=== PATIENT | female | born 1970 | race American Indian/Alaskan Native ===

== ENCOUNTER 2016-11-04 09:17 | Day surgery (SDC) | payer BC ==
[2016-11-02 13:35] LABS: Hematocrit 35.4 % (30.3-42.9); Hemoglobin 11.7 gm/dl (10.1-14.3); Mean Corpuscular HGB Conc 33 % (30-34); Mean Corpuscular Hemoglobin 28 pg (28-32); Mean Corpuscular Volume 85 fl (79-97); Platelet Count 314 K/mm3 (140-440); Red Blood Count 4.16 M/mm3 (3.65-5.03); Red Cell Distribution Width 13.2 % (13.2-15.2); White Blood Count 6.2 K/mm3 (4.5-11.0)
--- NOTE | 2016-11-02 13:40 | Anesthesia Consultation ---
Anesthesia Consult and Med Hx Date of service: 11/02/16 - Airway Anesthetic Teeth Evaluation: Good ROM Head & Neck: Adequate Mental/Hyoid Distance: Adequate Mallampati Class: Class I Intubation Access Assessment: Good - Pulmonary Exam CTA: Yes - Cardiac Exam Cardiac Exam: RRR - Pre-Operative Health Status ASA Pre-Surgery Classification: ASA3 Proposed Anesthetic Plan: General - Pulmonary Hx Smoking: No - Cardiovascular System Hx Hypertension: No Hx Heart Attack/AMI: No - Central Nervous System Hx Seizures: No CVA: No Hx Psychiatric Problems: No - Gastrointestinal Hx Gastroesophageal Reflux Disease: Yes (tomato sauce) - Endocrine Hx Renal Disease: No Hx Liver Disease: No Hx Non-Insulin Dependent Diabetes: No - Hematic Hx Anemia: Yes - Other Systems Hx Alcohol Use: Yes (occas) Hx Cancer: No Hx Obesity: Yes (MO) - Additional Comments Anesthesia Medical History Comments: NAC
[~2016-11-04 09:17] MED LIST: LACTATED RINGERS 1,000 ML IV SCH; PEPCID PO NR; VERSED IV NR
[2016-11-04] MEDS ORDERED: ANCEF/STERILE WATER 2 GM/20 ML 2 GM/20 ML SYRINGE IV NR (10:00)
[2016-11-04] MEDS ORDERED: NACL 0.9% IR ONE ×2 (10:07→10:08)
[2016-11-04] MEDS ORDERED: NACL BACTERIOSTATIC INFILTRATI ONE (10:07)
--- NOTE | 2016-11-04 10:22 | Short Stay Summary ---
Short Stay Documentation Date of service: 11/04/16 Narrative H&P: Pt is a 46yo BF LMP 10/21/16 presents for surgical evaluation and treatment for prolonged heavy vaginal bleeding unresponsive to hormonal therapy. She also had a previous D&C without much improvement. She is now scheduled for a Hysteroscopy with Novasure endometrial ablation. - History Principal diagnosis: DUB H&P: obtained from office Past Medical History: No medical history Past Surgical History: (x3), Other (myomectomy; BTL) Social history: no significant social history, single - Allergies and Medications Current Medications: Allergies pecan nut Allergy (Verified 10/29/16 15:29) Anaphylaxis walnut Allergy (Verified 10/29/16 15:29) Anaphylaxis Home Medications Medication Instructions Recorded Confirmed Last Taken Type No Known Home Medications [No 10/29/16 10/29/16 Unknown History Reported Home Medications] Active Medications Famotidine (Pepcid) 20 mg PO PREOP NR Stop: 11/04/16 23:59 Last Admin: 11/04/16 10:17 Dose: 20 mg Lactated Ringer's (Lactated Ringers) 1,000 mls @ 100 mls/hr IV DIRECT BETITO Cefazolin Sodium (Ancef/Sterile Water 2 Gm/20 Ml) 2 gm in 20 mls @ 80 mls/hr IV PREOP NR PRN Reason: Protocol Stop: 11/04/16 23:59 Midazolam HCl (Versed) 2 mg IV PREOP NR Stop: 11/04/16 23:59 - Physical exam General appearance: no acute distress Integumentary: no rash HEENT: Atraumatic Lungs: Clear to auscultation Breasts: deferred Heart: Regular rate Gastrointestinal: normal Female Genitourinary: deferred Rectal Exam: deferred Extremities: No edema Neurological: Normal speech - Brief post op/procedure progress note Date of procedure: 11/04/16 Pre-op diagnosis: Dysfunctional uterine bleeding Post-op diagnosis: same Procedure: 1. Hysteroscopy 2. Novasure endometrial ablation Anesthesia: MAC Findings: An 8-10 weeks size uterus with dysynchonous endometrium observed pre-ablation, and excellent burn post-ablation. Uterine cavity length 4.5cm, cavity width 4.4cm and 109Watts of Power was used for 120 seconds for the ablation. Surgeon: SAPPHIRE ALEJANDRE Estimated blood loss: minimal Pathology: none Condition: stable - Hospital course Hospital course: Unremarkable. - Disposition Condition at discharge: Good Disposition: DISCHARGED TO HOME OR SELFCARE - Discharge Diagnoses (1) DUB (dysfunctional uterine bleeding) Status: Resolved Short Stay Discharge Plan Activity: no restrictions Diet: regular Follow up with: SAPPHIRE ALEJANDRE MD [Primary Care Provider] - 14 Days Prescriptions: HYDROcodone/APAP 5-325 [Davy 5/325] 1 each PO Q6HR PRN #20 tablet PRN Reason: Pain
[2016-11-04] MEDS ORDERED: DIPRIVAN 10 MG/ML IV ONE (10:33)
[2016-11-04] MEDS ORDERED: DILAUDID ONE (10:34)
[2016-11-04] MEDS ORDERED: XYLOCAINE MPF 2% ONE (10:36)
[2016-11-04] MEDS ORDERED: TORADOL ONE (11:11)
[2016-11-04] MEDS ORDERED: ZOFRAN ONE (11:11)
--- NOTE | 2016-11-04 12:02 | Anesthesia Day of Surgery ---
Anesthesia Day of Surgery - Day of Surgery Patient Examined: Yes Patient H&P Reviewed: Yes Patient is NPO: Yes
--- NOTE | 2016-11-04 12:10 | Operative Report ---
Operative Report Operative Report: Date of procedure: 11/04/2016 Pre-operative diagnosis: Dysfunctional uterine bleeding Post-operative diagnosis: Same Procedure name(s): 1. Hysteroscopy 2. NovaSure endometrial ablation Surgeon: Robert Merritt MD Boom Man: None Anesthesia: General Mac EBL: Minimal <5mls Findings: An 8-10 week size uterus with dyssynchronous endometrium observed pre- ablation, and excellent burn post-ablation. Uterine cavity length 4.5 cm, uterine cavity width 4.4 cm, and 109 W of power was used for 120 seconds to perform the ablation. Procedure: After the patient was correctly identified, she was prepped and draped in usual sterile fashion and placed in dorsolithotomy position. First the bladder emptied using a straight catheter. Next a speculum was placed in the vaginal vault and the anterior lip of the cervix was grasped using single- tooth tenaculum the uterus was sounded to 9 cm, and the uterine cavity was measured to be 4.5 cm. The hysteroscope was then introduced into the cervical canal and visualization of the endometrial cavity found to dyssynchronous endometrium without any endometrial masses. The hysteroscope was then removed, and the NovaSure instrument was introduced into the uterine cavity. The uterine cavity with was 4.4 cm, and after testing, the ablation was performed. 109 W of power was used for 120 seconds to perform the ablation. After the procedure was complete the NovaSure device was removed, and hysteroscopy was then again performed to show the excellent burn. All instruments were then removed from the vagina. The patient tolerated this procedure well and was transported to recovery room in stable condition.
[2016-11-04 14:38] VITALS: BP 133/95
--- NOTE | 2016-11-04 14:57 | Post Anesthesia Evaluation ---
- Post Anesthesia Evaluation Patient Participated: Yes Airway Patent: Yes Stable Respiratory Function: Yes Nausea/Vomiting: No Temp > 96.8F: Yes Pain Manageable: Yes Adequeate Hydration: Yes Anesthesia Complications: No
--- NOTE | 2016-11-05 00:42 | Admit Criteria Form ---
Admission Criteria Documentation: AMBULATORY SURGERY EXCEPTION CRITERIA Ambulatory Surgery Exception Criteria ( Place 'X' for any and all applicable criteria): Surgery or procedure performed on ambulatory basis may require inpatient stay for[A] ANY ONE of the following(1)(2)(3)(4)(5)(6)(7)(8)(9): [X] I. A preoperative situation, condition, or finding that warrants inpatient stay as indicated by ANY ONE of the following: [] a) Inpatient care needed because of severity of a disease or condition rather than the surgery (eg, severe cardiac or respiratory disease, severe infection) (15) (16 ) (17) (18) [] b) Emergent procedure (eg, angioplasty for acute ischemia)(19) [] c) Complex surgical approach or situation as indicated by ANY ONE of the following(3): [] i) Open approach needed instead of usual endoscopic, transcatheter, or other less invasive procedure [] ii) Difficult approach because of previous operation [] iii) Airway monitoring required after open neck procedures(20)(21) [] iv) Large mass requiring unusually extensive dissection [] v) Additional complicating feature requiring inpatient care (eg, drain management)(22(23): [X] d) Major surgery in a pt with high anesthetic risk as indicated by ANY ONE of the following (2)(3)(5)(7)(8): [X] i) ASA risk class III or higher (severe systemic disease impairing function) [D] [] ii) Advanced age (eg, older than 85 years)(14)(24) [] iii) Symptomatic heart failure(25) [] iv) Symptomatic asthma or COPD(8)(21) [] v) Morbid obesity with hemodynamic or respiratory problems(20)( 21)(26)(27) [] vi) Obstructive sleep apnea(20)(21) [] vii) Former premature infants who are younger than 60 weeks [] viii) High risk for severe postoperative abnormalities (eg, severe postoperative hypocalcemia after parathyroidectomy for severe hyperparathyroidism)(27)( 28) [] ix) Unstable angina(25) [] e) Drug-related risk requiring inpatient stay as indicated by ANY ONE of the following(5)(10)(14)(32)(33) [] i) Procedure requires discontinuing drugs or other therapy (eg , antiarrhythmic medication, antiseizure medication), which necessitates inpatient observation or treatment.(18)(31) [] ii) Major surgery and high risk drug use as indicated by ANY ONE of the following: [] 1) Active abuse of cocaine or similar drug [] 2) Monoamine oxidase inhibitor use [] 3) Other drug identified as posing risk [] f) Inadequate outpatient care situation as indicated by ANY ONE of the following(5)(10)(14)(32)(33) [] i) Patient lives remote from medical facility and procedure has urgent complication potential, and temporary nearby residence cannot be arranged [] ii) Patient will have postprocedure incapacitation and inadequate assistance at home, or alternative level of care cannot be arranged. [] iii) Patient will have long general anesthesia or procedure side effect resolution time, and competent person to stay with patient on first postoperative night at home or alternative level of care cannot be arranged. []iv) Other inadequate outpatient situation that cannot be handled by other means [] II. A perioperative event, condition, or finding that warrants inpatient stay as indicated by ANY ONE of the following (1)(2)(3): [] a) Inadequate physiologic recovery: cardiovascular, respiratory, or hemodynamic status not normal or near preoperative baseline(18) [] b) Hemodynamic instability [] c) Patient not alert with near normal or baseline mental status [] d) Temperature not normal or as expected and not appropriate for outpatient treatment of condition [] e) Ambulatory or appropriate activity level status not yet achieved post procedure [E](34)(35)(36) [] f) Operative site not appropriate (eg, unexpected or excessive drainage or bleeding) [] g) Postoperative effects not resolved or adequately managed (eg, significant pain or vomiting not appropriate for outpatient or next level of care)(10)(12) [] h) Complicating features requiring inpatient care as indicated by ANY ONE of the following(37): [] i) Severe complications of procedure (eg, bowel injury, airway compromise, vascular injury,severe hemorrhage) [] ii) Extensive (eg, dissection far beyond usual scope of procedure ) or prolonged (eg, 120 minutes beyond usual) surgery needed requiring inpatient postoperative care [] iii) Conversion to an open or complex procedure that requires inpatient care (eg, open vs laparoscopic cholecystectomy, abdominal vs vaginal hysterectomy)(38) [] iv) Comorbid condition or test result identified during or post procedure that requires inpatient care (7) [] v) Malignant hyperthermia(30) [] vi) Other complicating feature requiring inpatient care(22)(23) Inpatient stay may be needed until ALL of the following are present (1)(2)(3)(4) (5)(6)(10)(14)(33)(40): []a) Physiologic recovery: cardiovascular, respiratory, and hemodynamic status normal or near preoperative baseline []b) Hemodynamic stability []c) Patient alert, with near normal or baseline mental status []d) Temperature appropriate: patient afebrile or temperature appropriate for outpt treatment of condition []e) Activity level appropriate: ambulatory or appropriate activity level post procedure []f) Operative site appropriate as indicated by ALL of the following: []i) Site dry or with expected drainage []ii) Any blood noted is as expected for procedure. []g) Postoperative effects resolved or managed as indicated by ALL of the following: []i) Pain management appropriate for outpatient (or next level of) care(10) []ii) Minimal nausea and vomiting: if present, successfully treated with oral medication(12) []iii) Headache, dizziness, or drowsiness (if present) are mild. []h) Voiding status acceptable as indicated by ANY ONE of the following: []i) Voiding spontaneously []ii) No voiding but instructions given for follow-up in 6 to 8 hours []iii) Urinary catheter in place, and instructions given for follow-up []i) Complicating features requiring inpatient care manageable at a lower level of care(37) []j) Comorbid conditions manageable at a lower level of care(37) The original [employer] content created by [employer] has been revised. The portions of the content which have been revised are identified through the use of italic text or in bold, and [facility] [employer] has neither reviewed nor approved the modified material. All other unmodified content is copyright [employer]. Please see references footnoted in the original [employer] edition 2016 Admission Criteria Met: Yes
== END 2016-11-04 13:25 | disposition home or self-care (01) ==
LOC: OR 09:17
PROVIDERS: ATTEND Obstetrics & Gynecology
DX: N93.8 Other specified abnormal uterine and vaginal bleeding (principal); K21.9 Gastro-esophageal reflux disease without esophagitis; D64.9 Anemia, unspecified; G43.909 Migraine, unspecified, not intractable, without status migrainosus; E66.01 Morbid (severe) obesity due to excess calories; Z68.41 Body mass index [BMI] 40.0-44.9, adult; Z72.89 Other problems related to lifestyle; Z98.890 Other specified postprocedural states; Z98.51 Tubal ligation status; Z86.718 Personal history of other venous thrombosis and embolism
CPT/HCPCS: 36415; 58563; 84703; 85027; A4217; J0690; J1170; J1885; J2250; J2405; J2704; J7120

== ENCOUNTER 2019-08-22 10:18 | Observation (INO) | payer BC ==
[2019-08-21 12:39] LABS: Basophils # (Auto) 0.1 K/mm3 (0.0-0.1); Basophils % (Auto) 1.5 % (0.0-1.8); Eosinophils # (Auto) 0.2 K/mm3 (0.0-0.4); Eosinophils % (Auto) 4.9 % (0.0-4.3); Hematocrit 39.8 % (30.3-42.9); Hemoglobin 13.2 gm/dl (10.1-14.3); Lymphocytes % (Auto) 47.2 % (13.4-35.0); Mean Corpuscular HGB Conc 33 % (30-34); Mean Corpuscular Volume 87 fl (79-97); Monocytes # (Auto) 0.4 K/mm3 (0.0-0.8); Monocytes % (Auto) 10.5 % (0.0-7.3); Platelet Count 317 K/mm3 (140-440); Red Cell Distribution Width 13.2 % (13.2-15.2)
--- NOTE | 2019-08-21 14:05 | Anesthesia Consultation ---
Anesthesia Consult and Med Hx Date of service: 08/21/19 - Airway Anesthetic Teeth Evaluation: Good ROM Head & Neck: Adequate Mental/Hyoid Distance: Adequate Mallampati Class: Class II Intubation Access Assessment: Good - Pulmonary Exam CTA: Yes - Cardiac Exam Cardiac Exam: RRR - Pre-Operative Health Status ASA Pre-Surgery Classification: ASA2 Proposed Anesthetic Plan: General Nerve Block: TAP BLOCK - Pulmonary Hx Smoking: No - Central Nervous System Hx Psychiatric Problems: No - Gastrointestinal Hx Gastroesophageal Reflux Disease: Yes (tomato sauce) - Endocrine Hx Renal Disease: No Hx Liver Disease: No Hx Non-Insulin Dependent Diabetes: No - Hematic Hx Anemia: Yes - Other Systems Hx Alcohol Use: Yes (occas) Hx Substance Use: No Hx Cancer: No Hx Obesity: Yes - Additional Comments Anesthesia Medical History Comments: Obesity , GERD for GA and TAP block
[~2019-08-22 10:18] MED LIST changes: +CELECOXIB 200 MG CAP PO NR; +GABAPENTIN 300 MG CAP PO NR; +MIDAZOLAM 2 MG/2 ML INJ IV NR; -PEPCID PO NR; -VERSED IV NR; +fentaNYL 100 MCG/2 ML INJ IV ONE
--- NOTE | 2019-08-22 10:37 | Anesthesia Day of Surgery ---
Anesthesia Day of Surgery - Day of Surgery Patient Examined: Yes Patient H&P Reviewed: Yes Patient is NPO: Yes
[2019-08-22] MEDS ORDERED: BUPIVACAINE-EPINEPHRINE/PF 0.5%-1:200,000 (30 ML) VIAL INFILTRATI ONE (10:43)
[2019-08-22] MEDS ORDERED: LIDOCAINE (1%) 10 MG/1 ML VIAL 20 ML MDV ONE (10:44)
--- NOTE | 2019-08-22 11:34 | History and Physical Report ---
History of Present Illness Date of examination: 08/22/19 Chief complaint: Symptomatic uterine fibroids History of present illness: Pt is a 49yo BF LMP 01/2017 presents for surgical evaluation and treatment of uterine fibroids and Right ovarian cyst. Pelvic u/s showed an enlarged uterus 12 x 8 x 6cm with 3 fibroids and a Right ovarian cyst 5.6 x 4.7 x 3.4cm. CA125 - 6.0 (WNL). She is now scheduled for a Robotic Assisted Total Hysterectomy with Right SalpingoOophorectomy. Past History Past Medical History: no pertinent history Past Surgical History: ELECTRICIAN MAINTENANCE/uterine surgery (Novasure endometrial ablation), section (x3), D&C, myomectomy ELECTRICIAN MAINTENANCE History: fibroids Family/Genetic History: none Social history: no significant social history, single Medications and Allergies Allergies Allergy/AdvReac Type Severity Reaction Status Date / Time pecan nut Allergy Anaphylaxis Verified 08/18/19 12:29 walnut Allergy Anaphylaxis Verified 08/18/19 12:29 almond AdvReac Swelling Verified 08/22/19 11:46 Home Medications Medication Instructions Recorded Confirmed Last Taken Type Ascorbic Acid [Vitamin C] 1,000 mg PO DAILY 08/18/19 08/18/19 Unknown History Cholecalciferol Vit D3 [Vitamin D3 1,000 unit PO QDAY 08/18/19 08/18/19 Unknown History 1,000 UNIT TAB] Multivit with Calcium,Iron,Min 1 each PO DAILY 08/18/19 08/18/19 Unknown History [One Daily Women's] Active Meds: Active Medications Celecoxib (Celebrex) 200 mg PO PREOP NR Stop: 08/22/19 14:59 Gabapentin (Gabapentin) 300 mg PO PREOP NR Stop: 08/22/19 14:59 Lactated Ringer's (Lactated Ringers) 1,000 mls @ 100 mls/hr IV DIRECT BETITO Review of Systems All systems: negative - Vital Signs Vital signs: Vital Signs Temp Pulse Resp BP Pulse Ox 97.0 F L 71 20 158/99 98 08/21/19 11:40 08/21/19 11:40 08/21/19 11:40 08/21/19 11:40 08/21/19 11:40 Temp Pulse Resp BP Pulse Ox 97.0 F L 71 20 159/96 98 08/21/19 11:40 08/21/19 11:40 08/21/19 11:40 08/21/19 12:20 08/21/19 11:40 - Physical Exam Breasts: Positive: deferred Cardiovascular: Regular rate Lungs: Positive: Clear to auscultation Abdomen: Positive: normal appearance Genitourinary (Female): Positive: normal external genitalia Uterus: Positive: enlarged Extremities: Positive: normal Results Result Diagrams: 08/23/19 03:45 Abnormal lab results 08/21/19 Range/Units 10:15 WBC 4.1 L (4.5-11.0) K/mm3 Lymph % (Auto) 47.2 H (13.4-35.0) % [place] % (Auto) 10.5 H (0.0-7.3) % Eos % (Auto) 4.9 H (0.0-4.3) % Seg Neutrophils % 35.9 L (40.0-70.0) % Seg Neutrophils # 1.5 L (1.8-7.7) K/mm3 All other labs normal. Laboratory Tests 08/21/19 08/21/19 08/22/19 10:15 10:15 11:20 WBC 4.1 L RBC 4.60 Hgb 13.2 Hct 39.8 MCV 87 MCH 29 MCHC 33 RDW 13.2 Plt Count 317 Lymph % (Auto) 47.2 H [place] % (Auto) 10.5 H Eos % (Auto) 4.9 H Baso % (Auto) 1.5 Lymph # 2.0 [place] # 0.4 Eos # 0.2 Baso # 0.1 Seg Neutrophils % 35.9 L Seg Neutrophils # 1.5 L HCG, Qual Negative Blood Type B POSITIVE Antibody Screen Negative 08/23/19 03:45 WBC RBC Hgb 12.6 Hct 37.4 MCV MCH MCHC RDW Plt Count Lymph % (Auto) [place] % (Auto) Eos % (Auto) Baso % (Auto) Lymph # [place] # Eos # Baso # Seg Neutrophils % Seg Neutrophils # HCG, Qual Blood Type Antibody Screen Ultrasound: report reviewed Assessment and Plan - Patient Problems (1) Uterine fibroid Onset Date: 08/22/19 Current Visit: Yes Status: Resolved Qualifiers: Uterine leiomyoma location: intramural, submucous, and subserous Qualified Code(s): D25.1 - Intramural leiomyoma of uterus; D25.0 - Submucous leiomyoma of uterus; D25.2 - Subserosal leiomyoma of uterus Plan to address problem: A: Symptomatic uterine fibroids Right ovarian cyst History of previous C Section and Myomectomy P: Admit for a Robotic Assisted Total Hysterectomy with Right SalpingoOophorectomy, possible Bilateral Oophorectomy (2) Right ovarian cyst Onset Date: 08/22/19 Current Visit: Yes Status: Resolved
[2019-08-22] MEDS ORDERED: fentaNYL 100 MCG/2 ML INJ ONE (11:54)
[2019-08-22] MEDS ORDERED: NEOMY 40 MG/POLYMYXIN B 200,000 UNITS/ML (GU) AMPULE IR ONE ×2 (11:55→13:29)
[2019-08-22] MEDS ORDERED: ceFAZolin/Water 2 GM/20 ML 2 GM/20 ML SYRINGE IV NR (12:00)
[2019-08-22] MEDS ORDERED: MIDAZOLAM 2 MG/2 ML INJ IV NR (12:00)
[2019-08-22] MEDS ORDERED: HYDROmorphone 1 MG/1 ML INJ ONE ×2 (12:06→16:04)
[2019-08-22] MEDS ORDERED: PROPOFOL 200 MG/20 ML VIAL IV ONE (12:06)
[2019-08-22] MEDS ORDERED: ROCURONIUM 50 MG/5 ML INJ IV ONE (12:06)
[2019-08-22] MEDS ORDERED: LIDOCAINE MPF (2%) 20 MG/1 ML VIAL 5 ML ONE (12:07)
[2019-08-22] MEDS ORDERED: SODIUM CHLORIDE 0.9% IRR 1,500 ML BOTTLE IR ONE (13:29)
[2019-08-22] MEDS ORDERED: SODIUM CHLORIDE 0.9% IRRIG SOLN 2000 ML IR ONE (13:29)
[2019-08-22] MEDS ORDERED: PROMETHAZINE 25 MG RECT SUPP PR PRN (14:59)
[2019-08-22] MEDS ORDERED: ONDANSETRON 4 MG/2 ML INJ IV PRN ×2 (14:59→15:35)
[2019-08-22] MEDS ORDERED: METOCLOPRAMIDE 10 MG/2 ML INJ IV PRN (14:59)
[2019-08-22] MEDS ORDERED: ACETAMINOPHEN 325 MG TAB PO PRN (14:59)
[2019-08-22] MEDS ORDERED: MAGNESIUM HYDROXIDE (MOM) ORAL LIQD UDC PO PRN (14:59)
[2019-08-22] MEDS ORDERED: SODIUM CHLORIDE 0.9% 1000 ML 1,000 ML ONE (14:59)
[2019-08-22] MEDS ORDERED: HYDROcodone/ACETAMINOPHEN 5-325 MG TAB PO PRN (14:59)
[2019-08-22] MEDS ORDERED: oxyCODONE /ACETAMINOPHEN 5-325MG TAB PO PRN (14:59)
--- NOTE | 2019-08-22 14:59 | Operative Report ---
Operative Report Operative Report: Pre-operative diagnosis: 1. Symptomatic uterine fibroids 2. Right ovarian cyst Post-operative diagnosis: Same with extensive bowel and pelvic adhesions Procedure : 1. Robotic-assisted total hysterectomy 2. Left salpingoOophorectomy 3. Right salpingectomy 4. Lysis of extensive bowel and pelvic adhesions Surgeon: Robert Merritt MD Industrial Truck Operator: Fatmata Caraballo CSA Intra-operative surgical consult with Dr Nicholas Anesthesia: General endotracheal intubation EBL: 200 mL's Findings: A 12-14 weeks size myomatous uterus with lower uterine segment adhesions. The left fallopian tube and ovary was densely adherent to the left uterine sidewall. The right fallopian tube and ovary appeared to be normal except for tubo-ovarian adhesions. Dense bowel adhesions to the anterior abdominal wall. Bilateral pelvic adhesions. Procedure: After the patient's first correctly identified, she was prepped and draped in the usual sterile fashion and placed in the dorsolithotomy position. The bladder was first catheterized using a Fonseca catheter and the speculum was placed in the vagina. The anterior lip of the cervix was grasped using a single- tooth tenaculum, and the medium Vesicare cup was placed. The tenaculum and speculum was then removed from the vagina and attention was then turned to the a bdomen. The skin knife was used to make a small incision approximately 5 cm above the umbilicus through which a 12 mm trocar was placed under direct visualization. After adequate amount of abdominal insufflation, visualization of the pelvic organs found the uterus to be enlarged, and the left fallopian tube was densely adherent to the left uterine sidewall. The right fallopian tube and ovary were normal except for tubo-ovarian adhesions. There were dense small bowel adhesions to the anterior abdominal wall, and extensive pelvic adhesions. A right and left paramedian incision was made through which the 8 mm trochars were placed under direct visualization and a 5 mm trocar was placed in the right lower quadrant. The patient was then placed in steep Trendelenburg positioning and the robot was docked on the patient's left side. After all the robotic ports were connected and adequate functioning of the robotic arms were tested the surgeon then proceeded to the console to begin the hysterectomy. First, an intra-operative consultation was made for the General Surgeon (Dr Nicholas) to assist in taking down the bowel adhesions to the abdominal wall. After he successfully removed the bowel without incident, I continued with the hysterectomy. The left infundibulopelvic ligament was grasped, cauterized and cut, thus freeing the adhesed left fallopian tube and ovary from the left pelvic sidewall. The same procedure was performed on the right. The right utero-ovarian ligament was grasped, cauterized and cut, the right fallopian tube also grasped, cauterized and cut along the mesosalpinx, thus freeing the normal appearing right ovary from the right uterine sidewall. The lower uterine segment adhesions were taken down using sharp and blunt dissection, and the bladder flap was taken down anteriorly. Pelvic adhesions were also taken down, and the uterine vessels were grasped, cauterized and cut bilaterally. The cardinal ligaments were sequentially grasped, cauterized and cut down to the level of the uterosacral ligaments. At this time an anterior colpotomy was performed over the Vcare cup, and the cervix was circumscribed beginning anteriorly and meeting posteriorly until the cervix was freed. The cervix, uterus, fallopian tubes and left ovary were then removed through the vagina and sent to pathology. The vaginal cuff was then closed using 2-0 Vloc suture in a running fashion. Irrigation was then performed and after good hemostasis was achieved. The procedure was considered complete. The Tisseel sealant was then sprayed across the vaginal cuff site, and after excellent hemostasis was assured, Interceed was placed across the vaginal cuff site. The abdominal pressure was reduced to 8 mmHg and excellent hemostasis was assured. All instruments were then removed from the abdominal cavity. Each incision was closed using 0 Vicryl suture in a [id number] configuration on the fascia followed by 4-0 Monocryl suture in a sub-cuticular fashion on the skin. Each incision was also infiltrated using 0.5% Marcaine solution. The vaginal pack was removed. The patient tolerated the procedure well and was transported to the recovery room in stable condition.
[2019-08-22] MEDS ORDERED: D5W/LACTATED RINGERS 1,000 ML IV SCH (15:00)
[2019-08-22] MEDS ORDERED: GLYCOPYRROLATE 0.4 MG/2 ML INJ ONE (15:00)
[2019-08-22] MEDS ORDERED: NEOSTIGMINE 10MG/10 ML INJ MDV ONE (15:00)
[2019-08-22] MEDS ORDERED: ONDANSETRON 4 MG/2 ML INJ ONE (15:00)
[2019-08-22] MEDS ORDERED: KETOROLAC 30 MG/1 ML INJ IV SCH (15:00)
[2019-08-22] MEDS ORDERED: KETOROLAC 30 MG/1 ML INJ ONE (15:00)
[2019-08-22] MEDS ORDERED: ceFAZolin/NS 1 GM/50 ML 1 GM/50 ML BAG IV SCH (15:00)
--- NOTE | 2019-08-22 15:29 | Post Operative Note ---
Date of procedure: 08/22/19 (dictation:[id number]) Pre-op diagnosis: Uterine fibroids Post-op diagnosis: same Findings: small bowel adhesed to anterior abdominal wall Procedure: robotic assisted laparoscopic lysis of adhesions. Anesthesia: GETA Surgeon: KYUNG MCFARLAND Estimated blood loss: none Pathology: none Condition: stable Disposition: no change
[2019-08-22] MEDS: HYDROmorphone 1 MG/1 ML INJ IV PRN ×3 (15:39→16:03)
--- NOTE | 2019-08-22 17:48 | Post Anesthesia Evaluation ---
- Post Anesthesia Evaluation Patient Participated: Yes Airway Patent: Yes Stable Respiratory Function: Yes Nausea/Vomiting: No Temp > 96.8F: Yes Pain Manageable: No Adequeate Hydration: Yes Anesthesia Complications: No Block Receding Appropriately: Not Applicable Patient on Ventilator: No
[2019-08-22] MEDS: ceFAZolin/NS 1 GM/50 ML 1 GM/50 ML BAG IV SCH (20:29)
[2019-08-22] MEDS: DOCUSATE SODIUM 100 MG CAP PO SCH (22:00)
--- NOTE | 2019-08-22 23:34 | Operative Report ---
PREOPERATIVE DIAGNOSIS: Symptomatic uterine fibroids. POSTOPERATIVE DIAGNOSES: Symptomatic uterine fibroids, intraabdominal adhesions. PROCEDURE: Robotic-assisted laparoscopic lysis of adhesions. ATTENDING PHYSICIAN: Mariah Nicholas MD. ANESTHESIA: General. ESTIMATED BLOOD LOSS: None. FINDINGS: A few loops of small bowel that were adhered to the anterior abdominal wall. SPECIMENS: None. DRAINS: None. COMPLICATIONS: None. DISPOSITION: Stable transition back to Dr. Merritt. INDICATIONS: This is a 49-year-old female who presented for [employer] surgery involving the uterine fibroids. Please see Dr. Merritt's notes for further details. At the start of the case, Dr. Merritt noted that a few loops of small bowel were adhered to the anterior abdominal wall. General Surgery consult was called. He and I discussed the case. He requested our assistance for lysis of adhesions in order for him to proceed and perform his case. The patient was already under anesthesia at this point and consent was implied. OPERATIVE NOTE: At this point, I took over on the robot. The patient was positioned appropriately using atraumatic grasper and scissors. I gently took down the adhesions. Some were very easy and see through. Some portions of the bowel were very close to the anterior abdominal wall. I gently bluntly dissected some of the adhesions, some sharp dissection, always taking care to minimize energy use near the bowel itself. Eventually, I was able to free up all the loops of bowel from the anterior abdominal wall. I checked the bowel. There was no compromise to the serosa in any of the limbs. There was no active bleeding. No drainage of any intestinal contents. Everything looked good. The bowel was completely viable in all the loops. Once I made sure that everything looked good, I then turned the case back over to Dr. Mreritt. There were no complications. JOB# [id number] RADHA/DEJA DODGE
[2019-08-23 04:09] LABS: Hematocrit 37.4 % (30.3-42.9); Hemoglobin 12.6 gm/dl (10.1-14.3)
[2019-08-23] MEDS: ceFAZolin/NS 1 GM/50 ML 1 GM/50 ML BAG IV SCH (05:00)
[2019-08-23] MEDS: DOCUSATE SODIUM 100 MG CAP PO SCH (10:07)
--- NOTE | 2019-08-23 12:16 | Progress Note ---
Assessment and Plan - Patient Problems (1) Uterine fibroid Onset Date: 08/22/19 Current Visit: Yes Status: Resolved Qualifiers: Uterine leiomyoma location: intramural, submucous, and subserous Qualified Code(s): D25.1 - Intramural leiomyoma of uterus; D25.0 - Submucous leiomyoma of uterus; D25.2 - Subserosal leiomyoma of uterus (2) Right ovarian cyst Onset Date: 08/22/19 Current Visit: Yes Status: Resolved (3) Status post robot-assisted surgical procedure Onset Date: 08/23/19 Current Visit: Yes Status: Resolved Plan to address problem: A: S/P RATH with LSO - POD #1 Doing well P: May go home today. Subjective - Subjective Date of service: 08/23/19 Principal diagnosis: s/p RATH with LSO - POD #1 Interval history: Pt is feeling well s/p a Robotic Assisted Total Hysterectomy with Left SalpingoOophorectomy. No complaints. She is tolerating a reg diet without nausea or vomiting, ambulating and voiding without difficulty. Patient reports: appetite normal, voiding normally, pain well controlled, flatus, ambulating normally, no dizzy ambulation, no nauseated Objective - Vital Signs Latest vital signs: Vital Signs Temp Pulse Resp BP BP Pulse Ox 08/23/19 07:38 98.1 F 84 18 142/85 95 08/23/19 04:00 98.4 F 74 16 113/57 08/23/19 00:00 98.7 F 69 18 132/71 08/22/19 19:30 98.7 F 77 18 138/78 08/22/19 16:57 157/96 08/22/19 16:30 67 16 142/93 100 08/22/19 16:15 66 16 149/93 99 08/22/19 16:00 97.0 F L 62 14 140/90 100 08/22/19 15:45 56 L 14 138/86 100 08/22/19 15:35 57 L 16 140/84 100 08/22/19 15:30 57 L 16 138/85 100 08/22/19 15:24 97.8 F 57 L 16 145/85 100 08/22/19 12:51 98.0 F 69 18 145/96 97 08/22/19 12:43 18 08/22/19 12:22 69 14 130/70 99 08/22/19 12:18 64 14 146/62 100 Intake and Output 08/22/19 08/23/19 08/23/19 22:59 06:59 14:59 Intake Total 650 Output Total 530 1400 Balance 120 -1400 Intake: IV 350 ANCEF/NS 1 GM/50 ML 1 gm 50 In 50 ml @ 100 mls/hr IV Q8H [facility] Rx#:[id number] Intake, Free Water 300 Output: Urine 530 1400 Indwelling Catheter 1400 Other: Total, Output Amount 600 Voiding Method Indwelling Catheter - Exam Breasts: Present: deferred Abdomen: Present: normal appearance, soft Extremities: Present: normal Incision: Present: normal, dry, intact - Labs Labs: Laboratory Tests 08/21/19 08/21/19 08/22/19 10:15 10:15 11:20 WBC 4.1 L RBC 4.60 Hgb 13.2 Hct 39.8 MCV 87 MCH 29 MCHC 33 RDW 13.2 Plt Count 317 Lymph % (Auto) 47.2 H Person % (Auto) 10.5 H Eos % (Auto) 4.9 H Baso % (Auto) 1.5 Lymph # 2.0 Person # 0.4 Eos # 0.2 Baso # 0.1 Seg Neutrophils % 35.9 L Seg Neutrophils # 1.5 L HCG, Qual Negative Blood Type B POSITIVE Antibody Screen Negative 08/23/19 03:45 WBC RBC Hgb 12.6 Hct 37.4 MCV MCH MCHC RDW Plt Count Lymph % (Auto) Person % (Auto) Eos % (Auto) Baso % (Auto) Lymph # Person # Eos # Baso # Seg Neutrophils % Seg Neutrophils # HCG, Qual Blood Type Antibody Screen
--- NOTE | 2019-08-23 12:18 | Discharge Summary ---
Providers - Providers Date of Admission: 08/22/19 14:59 Date of discharge: 08/23/19 Attending physician: SAPPHIRE ALEJANDRE [facility] Reason for admission: other (Symptomatic uterine fibroids) Procedure: other (Robotic Assisted Total Hysterectomy with Left SalpingoOophorectomy; Lysis of extensive pelvic adhesions) Episiotomy: none Laceration: none Incision: normal, dry, intact complications: none Discharge diagnosis: other (s/p RATH with LSO) Hospital course: Pt is a 49yo BF LMP 01/2017 who presented for surgical evaluation and treatment of uterine fibroids and Right ovarian cyst. Pelvic u/s showed an enlarged uterus 12 x 8 x 6cm with 3 fibroids and a Right ovarian cyst 5.6 x 4.7 x 3.4cm. CA125 - 6.0 (WNL). She underwent an uncomplicated Robotic Assisted Total Hysterectomy with Left SalpingoOophorectomy and Lysis of extensive bowel and pelvic adhesions. By POD #1 she was tolerating a reg diet without nausea or vomiting, ambulating and voiding without difficulty. She was therefore discharged to home on POD #1 in stable condition. Condition at discharge: Good Disposition: [id number] TO HOME OR SELFCARE - Discharge Diagnoses (1) Uterine fibroid Status: Resolved Qualifiers: Uterine leiomyoma location: intramural, submucous, and subserous Qualified Code(s): D25.1 - Intramural leiomyoma of uterus; D25.0 - Submucous leiomyoma of uterus; D25.2 - Subserosal leiomyoma of uterus (2) Right ovarian cyst Status: Resolved (3) Status post robot-assisted surgical procedure Status: Resolved Plan - Discharge Medications Prescriptions: Ibuprofen [Motrin] 800 mg PO Q8HR PRN #30 tablet PRN Reason: Pain, Mild (1-3) oxyCODONE /ACETAMINOPHEN [Percocet 5/325 mg] 1 tab PO Q6H PRN #30 tablet PRN Reason: Pain, Moderate (4-6) - Provider Discharge Summary Activity: routine, no sex for 6 weeks, no heavy lifting 4 weeks, no strenuous exercise Diet: routine Instructions: routine Additional instructions: [] Smoking cessation referral if applicable(refer to patient education folder for contact #) [] Refer to [facility]'s [facility] Booklet Call your doctor immediately for: * Fever > 100.5 * Heavy vaginal bleeding ( >1 pad per hour) * Severe persistent headache * Shortness of breath * Reddened, hot, painful area to leg or breast * Drainage or odor from incision. * Keep incision clean and dry at all times and follow doctor's instructions regarding bathing/showering - Follow up plan Follow up: SAPPHIRE ALEJANDRE MD [Staff Physician] - 14 Days OKARCHE HARINI MCGRAW MD [Primary Care Provider] - 14 Days
[2019-08-23 14:34] VITALS: BP 127/82
== END 2019-08-23 14:45 | disposition home or self-care (01) ==
LOC: OR 10:18 → OB 14:59
PROVIDERS: ADMIT Obstetrics & Gynecology; ATTEND Obstetrics & Gynecology
DX: D25.9 Leiomyoma of uterus, unspecified (principal); N83.201 Unspecified ovarian cyst, right side; Z98.890 Other specified postprocedural states; Z98.891 History of uterine scar from previous surgery
CPT/HCPCS: 36415; 58573; 58578; 64450; 84703; 85014; 85018; 85025; 86850; 86900; 86901; 88307; 96365; 96366; 96375; A4217; C1765; C9250; G0378; J0690; J1170; J1885; J2250; J2405; J2704; J2710; J3010; J7030; J7120; J7121; S2900